=== PATIENT | female | born 1995 | race Caucasian/White ===

== ENCOUNTER 2016-06-12 15:05 | Emergency (ER) | payer OTHER, SELFPAY ==
[~2016-06-12 15:05] MED LIST: ACETAMINOPHEN325 M2 PO; ACYCLOVIR400 M1 PO; BENADRYL ALLERG25 M1 PO; CEFDINIR300 M1 PO; CLARITIN5 M1 PO; FLAGYL500 M1 PO; MILK OF MAGNESIA PO; NASONEX17 G1; NORCO 5/3251 TAB PO; ZOFRAN4 M2 PO
[2016-06-12] MEDS ORDERED: PREDNISONE20 M1 PO (16:29)
== END 2016-06-12 16:45 ==
LOC: EDMED 15:05
DX: L50.9 Urticaria, unspecified (principal); J45.909 Unspecified asthma, uncomplicated; Z91.010 Allergy to peanuts
CPT/HCPCS: J7512